=== PATIENT | male | born 1940 | race Caucasian/White ===

== ENCOUNTER → 2016-11-02 | Outpatient (REF) | payer MEDICARE ==
[~2016-11-02] MED LIST: ADV250INH INH; ASPI81TA85 PO; BENETAB2 PO; CIPR500T89 PO; FLAG500T PO; LEVO175T PO; NAPR250T PO; OMEP40CA2 PO; SIMV40TA2 PO; VITA2000 PO
[2016-11-02 12:01] LABS: BASO % 0.4 % (0.0-1.0); EOS # 0.1 K/mm3 (0.0-0.50); EOS % 2.7 % (0.0-3.0); LARGE UNSTAINED CELL # 0.1 K/mm3 (0.0-0.4); LARGE UNSTAINED CELL % 2.7 % (0.0-4.0); LYMPH # 1.5 K/mm3 (1.5-4.5); LYMPH % 26.7 % (24.0-44.0); MEAN CORPUSCULAR HGB CONC 33.4 g/dl (32.0-36.5); MEAN CORPUSCULAR VOLUME 89.8 fl (80.0-96.0); MONO # 0.4 K/mm3 (0.0-0.8); MONO % 7.6 % (0.0-5.0); NEUTROPHILS # 3.1 K/mm3 (1.8-7.7); PLATELET COUNT, AUTOMATED 168 k/mm3 (150-450); RED CELL DISTRIBUTION WIDTH 13.6 % (11.5-14.5); WHITE BLOOD COUNT 5.2 K/mm3 (4.0-10.0)
[2016-11-02 12:31] LABS: VITAMIN B12 LEVEL > 2000 PG/ML
[2016-11-02 13:10] LABS: ALBUMIN 3.7 GM/DL (3.2-5.2); ALBUMIN/GLOBULIN RATIO 1.09 (1.00-1.93); ALKALINE PHOSPHATASE 103 U/L (45-117); ALT/SGPT 9 U/L (12-78); ANION GAP 8 MEQ/L (8-16); AST/SGOT 17 U/L (15-37); BILIRUBIN,TOTAL 0.5 MG/DL (0.2-1.0); BLOOD UREA NITROGEN 19 MG/DL (7-18); CALCIUM LEVEL 9.2 MG/DL (8.8-10.2); CARBON DIOXIDE LEVEL 26 MEQ/L (21-32); CHLORIDE LEVEL 105 MEQ/L (98-107); CREATININE FOR GFR 0.84 MG/DL (0.70-1.30); GLOMERULAR FILTRATION RATE > 60.0 (>42); GLUCOSE, FASTING 94 MG/DL (83-110); POTASSIUM SERUM 4.3 MEQ/L (3.5-5.1); SODIUM LEVEL 139 MEQ/L (136-145); TOTAL PROTEIN 7.1 GM/DL (6.4-8.2)
== END ==
LOC: M LABDRAW1 11:45
PROVIDERS: ATTEND Psychiatry & Neurology Neurology
DX: G20 Parkinson's disease (principal); E55.9 Vitamin D deficiency, unspecified

== ENCOUNTER 2017-01-27 11:13 | Inpatient (IN) | payer MEDICARE ==
[~2017-01-27] VITALS: Ht 177.8 cm; Wt 89.0 kg
[2017-01-27] MEDS ORDERED: OXYB5TAB PO ×2 (11:45→14:41)
[2017-01-27] MEDS ORDERED: CARBIDOPA-LEVO PO (11:45)
[2017-01-27] MEDS ORDERED: CARB1TAB9 PO (11:45)
[2017-01-27] MEDS ORDERED: ASPI81CH PO (11:46)
[2017-01-27] MEDS: NS 1,000 ML IV SCH ×2 (11:53→21:17)
--- NOTE | 2017-01-27 12:30 | REP ---
Clinical: Altered mental status. Comparison: 07/06/2016. Findings: Mediastinum and cardiac silhouette along with bilateral lung blake demonstrate relatively stable pleuroparenchymal changes. Subtle superimposed atelectasis cannot be excluded. Impression: Pleuroparenchymal changes similar to prior examination. Trace basilar atelectasis cannot be excluded. If the patient remains symptomatic consider chest CT for further investigation. Signed by Dustin Styles MD 01/27/2017 12:22 P
[2017-01-27 12:42] LABS: BASO % 0.2 % (0.0-1.0); EOS # 0.2 K/mm3 (0.0-0.50); EOS % 1.4 % (0.0-3.0); LARGE UNSTAINED CELL # 0.2 K/mm3 (0.0-0.4); LARGE UNSTAINED CELL % 1.4 % (0.0-4.0); LYMPH # 1.2 K/mm3 (1.5-4.5); LYMPH % 7.4 % (24.0-44.0); MEAN CORPUSCULAR HGB CONC 32.8 g/dl (32.0-36.5); MEAN CORPUSCULAR VOLUME 91.5 fl (80.0-96.0); MONO # 0.6 K/mm3 (0.0-0.8); MONO % 4.6 % (0.0-5.0); NEUTROPHILS # 11.3 K/mm3 (1.8-7.7); PLATELET COUNT, AUTOMATED 219 k/mm3 (150-450); RED CELL DISTRIBUTION WIDTH 13.6 % (11.5-14.5); WHITE BLOOD COUNT 13.3 K/mm3 (4.0-10.0)
[2017-01-27 13:04] LABS: OSMOLALITY SERUM 293 MOSM/KG (280-301)
[2017-01-27 13:10] LABS: ALBUMIN 2.6 GM/DL (3.2-5.2); ALBUMIN/GLOBULIN RATIO 0.62 (1.00-1.93); ALKALINE PHOSPHATASE 113 U/L (45-117); ALT/SGPT 11 U/L (12-78); ANION GAP 9 MEQ/L (8-16); AST/SGOT 53 U/L (15-37); BILIRUBIN,DIRECT 0.5 MG/DL (0.0-0.2); BILIRUBIN,TOTAL 1.2 MG/DL (0.2-1.0); BLOOD UREA NITROGEN 20 MG/DL (7-18); CALCIUM LEVEL 8.6 MG/DL (8.8-10.2); CARBON DIOXIDE LEVEL 28 MEQ/L (21-32); CHLORIDE LEVEL 105 MEQ/L (98-107); CREATININE FOR GFR 0.73 MG/DL (0.70-1.30); GLOMERULAR FILTRATION RATE > 60.0 (>42); GLUCOSE, FASTING 110 MG/DL (83-110); POTASSIUM SERUM 3.6 MEQ/L (3.5-5.1); SODIUM LEVEL 142 MEQ/L (136-145); TOTAL PROTEIN 6.8 GM/DL (6.4-8.2)
--- NOTE | 2017-01-27 13:40 | REP ---
Clinical: Cough and weakness. Comparison: 04/05/2015. Findings: Chronic areas of scarring and consolidations primarily involving the paramediastinal right upper lobe are similar to prior examination. New areas of consolidation with air bronchograms in the paramediastinal right middle lobe and right lower lobe are appreciated along with bilateral patchy alveolar infiltrates predominantly involving the lower lung zones as well as new area of consolidation with air bronchograms involving the basilar right upper lobe. Reactive adenopathy within the mediastinum is suggested along with small right pleural effusion. Atherosclerotic changes to the thoracic aorta and coronary arteries remains stable. No cardiomegaly or pericardial effusion identified. Surrounding musculoskeletal structures are intact. Impression: Findings likely represent multifocal pneumonia, and follow up to resolution is recommended to exclude further pathology including neoplasm. Signed by Dustin Styles MD 01/27/2017 01:32 P
--- NOTE | 2017-01-27 14:02 | REP ---
CT HEAD WITHOUT CONTRAST: HISTORY: Altered mental status. Areas of decreased attenuation are present in the periventricular and subcortical white matter. This represents small vessel ischemic disease. There is no intraparenchymal hemorrhage, mass or midline shift. The ventricular system and cortical sulci as well as subarachnoid space in the posterior fossa are dilated consistent with moderate volume loss. There is no extracerebral collection. The visualized sinuses are clear. IMPRESSION: 1. Small vessel ischemic disease. 2. Moderate volume loss. Signed by Reese Luke MD 01/27/2017 02:09 P
[2017-01-27] MEDS ORDERED: cefTRIAXone SOD 1 GM in D5W MINI-BAG PLUS 50 ML IV ONE (14:15)
[2017-01-27] MEDS ORDERED: AZITHROMYCIN INJ 500 MG, VIAL MATE ADAPTER 1 EACH in D5W 250 ML IV ONE (14:15)
[2017-01-27] MEDS ORDERED: SINEMET 25-100 MG TAB PO ONE (14:30)
[2017-01-27] MEDS ORDERED: SIMV80TA PO (14:41)
[2017-01-27] MEDS ORDERED: OMEP40CA2 PO (14:41)
[2017-01-27] MEDS ORDERED: ASPI81TA24 PO (14:41)
[2017-01-27] MEDS ORDERED: LEVO150T42 PO (14:41)
[2017-01-27] MEDS ORDERED: ADVA115A INH (14:41)
[2017-01-27] MEDS ORDERED: CARB25TA PO (14:41)
[2017-01-27] MEDS ORDERED: ALBU17IN INH (14:44)
[2017-01-27] MEDS ORDERED: PYRI100T2 PO (14:44)
[2017-01-27] MEDS ORDERED: VITA100T2 PO (14:44)
[2017-01-27] MEDS ORDERED: CARB1TAB97 PO (14:44)
[2017-01-27] MEDS ORDERED: VITA500064 PO (14:44)
[2017-01-27] MEDS ORDERED: SERT25TA PO (14:44)
[2017-01-27] MEDS ORDERED: TRAM50TA2 PO (14:44)
[2017-01-27] MEDS ORDERED: ONDANSETRON 4MG/2ML VIAL (J2405) IV PRN (16:30)
[2017-01-27] MEDS ORDERED: BISACODYL 5 MG TAB PO PRN (16:30)
[2017-01-27] MEDS ORDERED: IPRATROPIUM 0.5MG/ALBUTEROL 2.5MG INH SOL UD 3ML (DUONEB)(J7620) NEB PRN (16:30)
--- NOTE | 2017-01-27 17:47 | REP ---
LIMITED ABDOMEN ULTRASOUND: HISTORY: Transaminitis. The gallbladder is contracted. The gallbladder wall is thickened measuring 3.3 mm. The common bile duct measures 5.4 mm. The liver is normal in echogenicity. The pancreas is not seen due to overlying bowel gas. The right kidney is normal in echogenicity. The right kidney measures 5.6 cm in transverse x 5.3 cm in AP x 12.2 cm in cephalocaudal dimensions. There is no hydronephrosis or mass. A small right pleural effusion is present. IMPRESSION: 1. Contracted gallbladder. 2. Small right pleural effusion. Signed by Reese Luke MD 01/27/2017 06:21 P
[2017-01-27] MEDS: ACETAMINOPHEN TAB 650MG DOSE (2X325MG) PO PRN (17:54)
--- NOTE | 2017-01-27 18:40 | HPE ---
DATE OF ADMISSION: 01/27/2017 CHIEF COMPLAINT: 76-year-old gentleman brought in by family member due to altered mentation and weakness. HISTORY OF PRESENT ILLNESS: This is a 76-year-old gentleman with a significant past medical history of Parkinson's, hyperlipidemia, hypothyroidism, gastroesophageal reflux disease (GERD), who presented to the emergency room complaining of weakness and altered mentation for the past 5 days. Family provides most of the history, as the patient has been weak and progressively not feeling well for the past 5 days, but his altered mentation started today and he therefore came to the emergency room for further evaluation. The patient also did have some history of cough, feeling like he has had some phlegm out, but no sputum production. No history of fever, diarrhea, nausea, vomiting, but did have some clamminess, as per patient's family members. The patient also has a history of having Parkinson's disease and squamous cell lung cancer history in the past that he follows up with Dr. Lee as an outpatient and Dr. Aaron. The patient currently is awake, alert and oriented times three. Cooperates with physical examination without difficulty. Does not complain of any shortness of breath, pain or discomfort at this time. The patient's family also mentioned that the patient's only complications of Parkinson's is difficulty walking and beginning stages of memory loss. The patient was evaluated in the emergency room with a chest x-ray and CT of the chest, which showed pneumonia. Therefore, the patient is being admitted for further evaluation and treatment. The patient's family mentions that the patient's mentation has improved significantly since the emergency room. At this time, the patient is resting comfortably without any complaints. In the emergency room, the patient was started on IV fluids and antibiotics. It should be noted that the patient also had a cough for 2 to 3 days but no fever. Initially, family contributed his altered mentation due to not taking his medications right away, but again when his symptoms did not improve within the past five days and his altered mentation occurred today, he was brought to the emergency room for further evaluation. REVIEW OF SYSTEMS: Ten-point review of systems is negative other than those described in history of present illness. PAST MEDICAL HISTORY: Significant for: 1. Parkinson's. 2. Squamous cell lung cancer, followed by Dr. Lee. 3. Hyperlipidemia. 4. Hypothyroidism. 5. Gastroesophageal reflux disease (GERD). ALLERGIES: The patient has no known drug allergies. MEDICATIONS: From home are as follows: - albuterol as needed four times a day - aspirin 81 mg one tablet once a day - carbidopa levodopa 25/100 mg two tablets by mouth four times a day - carbidopa levodopa extended release 50/200 mg one tablet by mouth at night - cyanocobalamin 5000 mcg by mouth daily - levothyroxine 150 mcg by mouth daily - omeprazole 40 mg by mouth twice a day - oxybutynin 5 mg by mouth twice a day - pyridoxine 200 mg by mouth daily - Advair 115/21 mcg two puffs twice a day - sertraline 25 mg by mouth at night - simvastatin 40 mg by mouth at night - thiamine B1 100 mg by mouth daily - tramadol 50 mg by mouth at night as needed for pain SOCIAL HISTORY: The patient denies smoking, drinking or drug abuse. FAMILY HISTORY: Noncontributory at this time due to his age. PHYSICAL EXAMINATION: VITAL SIGNS: Last heart rate was 100, blood pressure is 156/81, saturating 91 to 92% on room air. Respiratory on my examination was 14. I did ask the emergency room staff to provide temperature and repeat vitals, awaiting repeat vitals at this time. The repeat vitals show his temperature is 99.9, heart rate 102, respiratory rate of 20, blood pressure is 144/80, saturating 90%. On my examination, the patient did not have any shortness of breath or difficulty breathing. We will place him on oxygen therapy as needed, along with respiratory treatment. HEENT: Normocephalic, atraumatic. Eyes, nose and throat normal. Pupils equal, round, and reactive to light and accommodation. Mucosa is moist. NECK: Supple with no tracheal deviation. CARDIAC: S1, S2. Regular rate and rhythm. Pulses present. LUNGS: Equal entry. Did not hear any significant wheezes but fine crackles at the base bilaterally. No rales noted. ABDOMEN: Soft, nontender. Bowel sounds present. EXTREMITIES: Lower extremities with significant pitting edema. Skin is intact. Warm to touch, afebrile. NEUROLOGIC: The patient is currently awake, alert and oriented times three. Cranial nerves grossly intact. Motor and sensory is intact. Normal mood and affect for current situation. Family at the bedside. As per family members, the patient's mentation has improved significantly since being in the emergency room. DIAGNOSTIC STUDIES: The patient has a chest x-ray which showed pleural parenchymal changes, similar to the prior examination. Trace bilateral atelectasis cannot be excluded. If the patient remains symptomatic, consider a CT of the chest for further evaluation. The patient did end up getting a CT of the chest, which showed, as per radiology, findings likely represent multifocal pneumonia and followup to resolution is recommended to exclude further pathology, including neoplasm. The patient also had a CT of the head, as per radiology, shows small vessel ischemic disease, moderate volume loss. Diagnostic laboratory: The patient had WBC of 13.3, hemoglobin and hematocrit of 13.6 and 41.6, platelet count is 219. Complete metabolic profile is within normal limits except for a BUN of 20, calcium was 8.6, total bilirubin was 1.2, direct bilirubin is 0.5, AST and ALT 63 and 11, respectively. Albumin is 2.6, otherwise complete metabolic profile is normal. TSH is 0.259. The patient has hypothyroidism and takes medication for this as well. Ammonia level is normal at 23. Lactate is 1.5. Cardiac enzymes normal. Toxicology, salicylate is less than 1.7, acetaminophen less than 2, alcohol was less than 0.003. Blood cultures are pending at this time. ASSESSMENT AND PLAN: This is a 76-year-old gentleman with a significant past medical history of Parkinson's disease with residual of difficulty walking and beginning stages of memory loss. History of squamous cell lung cancer, hyperlipidemia, hypothyroidism, gastroesophageal reflux disease (GERD), who was brought in by family member due to weakness for the past 5 days and altered mentation today. 1. Suspect sepsis pending due to pneumonia. CT of the chest finding pneumonia. Mentation has improved with IV fluids and antibiotics. We will resume azithromycin and Rocephin. Followup on culture. Due to history of Parkinson's and change in mentation, we will also request speech therapy for possible aspiration, but at this time the patient does not seem to have any acute findings of aspiration on my examination, but we will continue to monitor. We will utilizing oxygen. He has respiratory treatments as needed. Resume home regimen with long-acting steroid inhaler as well. The patient is to followup with repeat chest x-ray and possible outpatient followup with Dr. Lee regarding the complete resolution of pneumonia and to rule out for malignancy as the radiologist recommended. 2. Transaminitis, most likely secondary to problem #1. Treat problem #1. We will obtain a hepatitis panel and in addition liver ultrasound for further evaluation. The patient does not have any acute abdominal discomfort on my examination. Continue to monitor clinically. 3. Low TSH. The patient is on Synthroid. We will decrease the levothyroxine level to 125 at this time. 4. Parkinson's. Resume carbidopa and levodopa. 5. Hyperlipidemia. Resume aspirin and statin. 6. Gastroesophageal reflux disease (GERD). Resume omeprazole. 7. Deep vein thrombosis (DVT) prophylaxis. The patient requested to be FULL CODE. We will honor his wishes. LAMAR
[2017-01-27 20:10] LABS: METHADONE URINE NEGATIVE (NEGATIVE)
[2017-01-27] MEDS ORDERED: SIMVASTATIN 40 MG TAB PO SCH (21:00)
[2017-01-27] MEDS: SERTRALINE HCL 25 MG TABLET PO SCH (21:14)
[2017-01-27] MEDS: oxyBUTYnin *DITROPAN XL* 5 MG TABCR PO SCH (21:14)
[2017-01-27] MEDS: SINEMET**CR** 25/100 TABCR PO SCH (21:15)
[2017-01-27] MEDS: OMEPRAZOLE 20 MG CAP PO SCH (21:15)
[2017-01-27] MEDS: HEPARIN SOD (PORCINE) 5000 UNITS/ML VIAL SC SCH (21:16)
[2017-01-27] MEDS: traMADol 50 MG TAB PO PRN (21:16)
[2017-01-27 22:00] VITALS: BP 144/90
[2017-01-28] MEDS: ADVAIR HFA 115/21MCG INHALER INH SCH ×3 (00:10→21:00)
[2017-01-28] MEDS: IPRATROPIUM 0.5MG/ALBUTEROL 2.5MG INH SOL UD 3ML (DUONEB)(J7620) NEB SCH ×4 (01:11→21:55)
[2017-01-28] MEDS: LEVOTHYROXINE 125MCG TABLET (0.125MG) PO SCH (05:42)
[2017-01-28] MEDS: HEPARIN SOD (PORCINE) 5000 UNITS/ML VIAL SC SCH ×3 (05:42→20:50)
[2017-01-28 06:00] VITALS: BP 137/85
--- NOTE | 2017-01-28 07:32 | ECGEPIP ---
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
[2017-01-28 07:47] LABS: MEAN CORPUSCULAR HEMOGLOBIN 30.7 pg (27.0-33.0); MEAN CORPUSCULAR VOLUME 90.3 fl (80.0-96.0); RED CELL DISTRIBUTION WIDTH 13.8 % (11.5-14.5); WHITE BLOOD COUNT 10.4 K/mm3 (4.0-10.0)
[2017-01-28 08:25] LABS: ALBUMIN 2.1 GM/DL (3.2-5.2); ALBUMIN/GLOBULIN RATIO 0.47 (1.00-1.93); ALKALINE PHOSPHATASE 94 U/L (45-117); ALT/SGPT 12 U/L (12-78); ANION GAP 7 MEQ/L (8-16); AST/SGOT 26 U/L (15-37); BILIRUBIN,TOTAL 0.7 MG/DL (0.2-1.0); BLOOD UREA NITROGEN 17 MG/DL (7-18); CALCIUM LEVEL 8.4 MG/DL (8.8-10.2); CARBON DIOXIDE LEVEL 28 MEQ/L (21-32); CHLORIDE LEVEL 106 MEQ/L (98-107); CREATININE FOR GFR 0.55 MG/DL (0.70-1.30); GLOMERULAR FILTRATION RATE > 60.0 (>42); GLUCOSE, FASTING 86 MG/DL (83-110); POTASSIUM SERUM 3.1 MEQ/L (3.5-5.1); SODIUM LEVEL 141 MEQ/L (136-145); TOTAL PROTEIN 6.6 GM/DL (6.4-8.2)
[2017-01-28] MEDS ORDERED: LEVOTHYROXINE 150MCG TABLET (0.15MG) PO SCH (09:00)
[2017-01-28] MEDS ORDERED: POTASSIUM CHLORIDE 10 MEQ SR TABLET PO ONE (09:00)
[2017-01-28] MEDS: THIAMINE 100 MG TAB PO SCH (09:42)
[2017-01-28] MEDS: oxyBUTYnin *DITROPAN XL* 5 MG TABCR PO SCH ×2 (09:42→20:06)
[2017-01-28] MEDS: OMEPRAZOLE 20 MG CAP PO SCH ×2 (09:42→20:06)
[2017-01-28] MEDS: ASPIRIN 81 MG ENTERIC TAB PO SCH (09:42)
[2017-01-28] MEDS: PYRIDOXINE 50 MG TAB PO SCH (09:44)
[2017-01-28] MEDS: SINEMET 25-100 MG TAB PO SCH ×4 (09:48→18:28)
[2017-01-28] MEDS: ACETAMINOPHEN TAB 650MG DOSE (2X325MG) PO PRN ×2 (11:01→15:19)
--- NOTE | 2017-01-28 12:52 | IPN ---
DATE OF VISIT: 01/28/2017 SUBJECTIVE: Mr. Price is a 76-year-old male who was seen and examined at the bedside. The patient denies chest pain, orthopnea or paroxysmal nocturnal dyspnea (PND). Patient also denies nausea, vomiting, diarrhea or constipation. Today during the visit the patient was eating breakfast, however, patient earlier was seen by speech therapy who cleared him for having p.o. The patient expressed that he did not have any choking or have any problems with chewing or swallowing food. The patient denies overnight issues. The patient expressed that today he feels better compared to yesterday. The patient denies chest pain, orthopnea, or paroxysmal nocturnal dyspnea (PND). The patient also denies nausea or vomiting, diarrhea or constipation. PHYSICAL EXAMINATION: VITAL SIGNS: Temperature 97.8, pulse 82, respiratory rate 18, blood pressure 137/85, pulse oximetry 94% on room air. GENERAL APPEARANCE: The patient was sitting in chair in no acute distress. Patient was awake, alert and oriented to time, place and person. HEENT: Normocephalic, atraumatic. Pupils are equally reactive to light. Oral mucosa is moist. NECK: Soft, supple. No lymphadenopathy, no thyromegaly, no jugular venous distention (JVD). HEART: Regular rate and rhythm. Normal S1 and S2. LUNGS: The patient has fine wheezing bilaterally. ABDOMEN: Soft, nontender. Positive bowel sounds in all quadrants. EXTREMITIES: Patient has mild lower extremity pitting edema. +2 pulses in both lower extremities. NEURO: Cranial nerves II through XII is intact. No focal deficiencies. LABORATORY DATA: White blood cells 10.4, red blood cells 4.11, hemoglobin 12.6, hematocrit 37.1, MCV 90.3, MCH 30.7, MCHC 34, RDW 13.8, platelet count 196, sodium 141, potassium 3.1, chloride 106, carbon dioxide 28, anion gap 7. BUN 17, creatinine 0.55, glomerular filtration rate (GFR) more than 60, fasting glucose 86, calcium 8.4, total bilirubin 0.7, AST 26, ALT 12, alkaline phosphatase 96, total protein 6.6, albumin 2.1. ASSESSMENT/PLAN: 1. Pneumonia. Imaging indicated the possibility of pneumonia. The patient was started on azithromycin and Rocephin. Today patient's temperature is in normal range. Also, white blood cells have decreased today to 10.4 compared to yesterday which was 13.3. Blood culture is pending. Patient is on room air. Previously patient has been diagnosed with squamous cell carcinoma and following with Dr. Lee, however, patient is to followup with repeat chest x-ray and possible outpatient followup with Dr. Lee regarding complete resolution of the pneumonia and to rule out a malignancy as the radiologist recommended. Patient is also on breathing treatments. 2. Transaminitis. It has resolved. This was possibly secondary to sepsis possibly caused by pneumonia. Patient was on IV fluid, however, I have stopped IV fluids due to patient tolerating p.o. We will continue monitoring liver functions. 3. Low TSH. Patient is on Synthroid, however, the level has increased to 125. We will continue to monitoring the patient's TSH level. 4. Parkinson's. We will continue the patient on current dosage of carbidopa and levodopa. Speech therapy has seen the patient today and the patient was started on a regular diet. Also they have provided the patient education from the Parkinson's [facility] about speech and swallow with Parkinson's. 5. Hyperlipidemia. Patient is on statin. 6. Gastroesophageal reflux disease (GERD). Patient is on omeprazole. 7. Deep vein thrombosis (DVT) prophylaxis. Patient is on heparin every 8 hours subcutaneously. 8. Abnormal urinalysis. Patient's UA findings indicative of urinary tract infection, however, urine culture is pending. Patient is asymptomatic, however patient is on IV antibiotics for pneumonia. At this time, we are waiting for the results for urine culture. My preceptor for this patient encounter was Dr. Bob Linares. The preceptor was physically present in the building during the encounter and was fully available. As needed, all aspects of the patient interview, examination, medical decision making process, and medical care plan development were reviewed and approved by the preceptor. The preceptor is aware and concurs with the plan as stated in the body of this note and will attest to such by his/her cosignature. I, Bob Linares, have both independently examined this patient as well as reviewed the documentation. I have discussed in detail with the resident the findings and plan of treatment as documented in the residents documentation. I will continue to follow the patient and offer further guidance to the patients care as necessary. LAMAR
[2017-01-28] MEDS: AZITHROMYCIN INJ 500 MG, VIAL MATE ADAPTER 1 EACH in D5W 250 ML IV SCH (15:19)
[2017-01-28] MEDS: cefTRIAXone SOD 1 GM in D5W MINI-BAG PLUS 50 ML IV SCH (16:55)
[2017-01-28] MEDS: METOPROLOL TART 25 MG TABLET PO SCH (17:30)
[2017-01-28] MEDS ORDERED: METOPROLOL TART 25 MG TABLET As Ordered ONE (17:39)
[2017-01-28] MEDS ORDERED: ASPIRIN 325 MG TAB PO ONE (18:00)
--- NOTE | 2017-01-28 18:16 | ECGEPIP ---
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
[2017-01-28 18:23] LABS: ANION GAP 8 MEQ/L (8-16); BLOOD UREA NITROGEN 15 MG/DL (7-18); CALCIUM LEVEL 8.2 MG/DL (8.8-10.2); CARBON DIOXIDE LEVEL 26 MEQ/L (21-32); CHLORIDE LEVEL 108 MEQ/L (98-107); CREATININE FOR GFR 0.61 MG/DL (0.70-1.30); GLOMERULAR FILTRATION RATE > 60.0 (>42); GLUCOSE, FASTING 124 MG/DL (83-110); MAGNESIUM LEVEL 1.7 MG/DL (1.8-2.4); POTASSIUM SERUM 3.5 MEQ/L (3.5-5.1); SODIUM LEVEL 142 MEQ/L (136-145)
[2017-01-28] MEDS ORDERED: MAG SULF 1GM/100ML (MAG RUN) 1 GM in APPROPRIATE DILUENT 1 EA IV ONE (19:00)
[2017-01-28] MEDS: SIMVASTATIN 40 MG TAB PO SCH (20:07)
[2017-01-28] MEDS: SERTRALINE HCL 25 MG TABLET PO SCH (20:07)
[2017-01-28] MEDS: traMADol 50 MG TAB PO PRN (20:25)
[2017-01-28 20:42] VITALS: BP 110/73
[2017-01-28] MEDS ORDERED: SLF 3 ML SYR IV PRN (20:45)
[2017-01-28] MEDS: SINEMET**CR** 25/100 TABCR PO SCH (20:49)
[2017-01-28] MEDS: SLF 3 ML SYR IV SCH (20:50)
[2017-01-28 23:59] VITALS: BP 141/70
[2017-01-29] MEDS: IPRATROPIUM 0.5MG/ALBUTEROL 2.5MG INH SOL UD 3ML (DUONEB)(J7620) NEB SCH ×5 (01:35→20:00)
[2017-01-29 04:00] VITALS: BP 132/75
[2017-01-29] MEDS: HEPARIN SOD (PORCINE) 5000 UNITS/ML VIAL SC SCH ×3 (04:57→21:49)
[2017-01-29] MEDS: SLF 3 ML SYR IV SCH ×3 (04:57→21:50)
[2017-01-29] MEDS: LEVOTHYROXINE 125MCG TABLET (0.125MG) PO SCH (04:57)
--- NOTE | 2017-01-29 06:11 | ECGEPIP ---
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
[2017-01-29 06:25] LABS: MEAN CORPUSCULAR HEMOGLOBIN 30.4 pg (27.0-33.0); MEAN CORPUSCULAR HGB CONC 33.6 g/dl (32.0-36.5); MEAN CORPUSCULAR VOLUME 90.5 fl (80.0-96.0); WHITE BLOOD COUNT 9.4 K/mm3 (4.0-10.0)
[2017-01-29 06:37] LABS: ALBUMIN 2.1 GM/DL (3.2-5.2); ALBUMIN/GLOBULIN RATIO 0.53 (1.00-1.93); ALKALINE PHOSPHATASE 91 U/L (45-117); ALT/SGPT < 6 U/L (12-78); ANION GAP 8 MEQ/L (8-16); AST/SGOT 40 U/L (15-37); BILIRUBIN,TOTAL 0.4 MG/DL (0.2-1.0); BLOOD UREA NITROGEN 14 MG/DL (7-18); CALCIUM LEVEL 8.2 MG/DL (8.8-10.2); CARBON DIOXIDE LEVEL 24 MEQ/L (21-32); CHLORIDE LEVEL 107 MEQ/L (98-107); CREATININE FOR GFR 0.54 MG/DL (0.70-1.30); GLOMERULAR FILTRATION RATE > 60.0 (>42); GLUCOSE, FASTING 87 MG/DL (83-110); POTASSIUM SERUM 3.7 MEQ/L (3.5-5.1); SODIUM LEVEL 139 MEQ/L (136-145); TOTAL PROTEIN 6.1 GM/DL (6.4-8.2)
[2017-01-29] MEDS: ADVAIR HFA 115/21MCG INHALER INH SCH ×2 (07:40→20:29)
[2017-01-29 08:00] VITALS: BP 148/81
[2017-01-29] MEDS: THIAMINE 100 MG TAB PO SCH (08:24)
[2017-01-29] MEDS: SINEMET 25-100 MG TAB PO SCH ×4 (08:24→17:20)
[2017-01-29] MEDS: oxyBUTYnin *DITROPAN XL* 5 MG TABCR PO SCH ×2 (08:24→21:49)
[2017-01-29] MEDS: METOPROLOL TART 25 MG TABLET PO SCH ×2 (08:24→21:49)
[2017-01-29] MEDS: OMEPRAZOLE 20 MG CAP PO SCH ×2 (08:24→21:49)
[2017-01-29] MEDS: ASPIRIN 81 MG ENTERIC TAB PO SCH (08:24)
[2017-01-29] MEDS: PYRIDOXINE 50 MG TAB PO SCH (08:25)
[2017-01-29 08:43] LABS: MAGNESIUM LEVEL 2.1 MG/DL (1.8-2.4)
[2017-01-29] MEDS ORDERED: ASPIRIN 325 MG TAB GT SCH (09:00)
[2017-01-29] MEDS ORDERED: KETOROLAC TROMETHAMINE 10 MG TAB PO PRN (09:15)
[2017-01-29 12:00] VITALS: BP 140/86
[2017-01-29] MEDS ORDERED: CEPACOL LOZENGE PO PRN (12:45)
[2017-01-29] MEDS: AZITHROMYCIN INJ 500 MG, VIAL MATE ADAPTER 1 EACH in D5W 250 ML IV SCH (15:30)
[2017-01-29 16:00] VITALS: BP 128/76
[2017-01-29] MEDS: cefTRIAXone SOD 1 GM in D5W MINI-BAG PLUS 50 ML IV SCH (17:21)
--- NOTE | 2017-01-29 17:57 | IPN ---
DATE: 01/29/2017 SUBJECTIVE: Mr. Price is a 76-year-old male who was seen and examined at the bedside. Yesterday evening the patient started having tachycardia. EKG indicated supraventricular tachycardia with premature ventricular contraction (PVC) as well as left anterior fascicular block. The patient was given one dose of metoprolol tartrate 25 mg, also we have ordered cardiac marker which were negative. We rechecked the EKG which shows sinus rhythm, however, we sent to the patient to PCU for observation. The patient was asymptomatic overnight. The patient denied chest pain, orthopnea or paroxysmal nocturnal dyspnea (PND). The patient also denies palpitations, racing or skipping heartbeat. At this point, the patient is on metoprolol tartrate 25 mg by mouth twice a day. OBJECTIVE: VITAL SIGNS: Temperature 98.1, pulse 82, respiratory rate 18, blood pressure 148/81, pulse oximetry 93 on room air. Total intake from yesterday 3200 mL. Total output 1150. GENERAL APPEARANCE: The patient was lying in bed, in no acute distress. The patient was awake, alert and oriented to time, place and person. HEENT: Normocephalic, atraumatic. Pupils reactive to light. Oral mucosa is moist. NECK: Soft, supple. No lymphadenopathy, no jugular venous distention (JVD). HEART: Regular rate and rhythm. Normal S1, S2. ABDOMEN: Soft, nontender. Positive bowel sounds in all quadrants. LUNGS: The patient has wheezing bilaterally. However, no crackles or rhonchi were appreciated. EXTREMITIES: No lower extremity edema. Positive pulses in both lower extremities. LABORATORY DATA: White blood cells 9.4, red blood cells 3.83, hemoglobin 11.7, hematocrit 34.7, MCV 90.4, MCH 30.4, MCHC 33.6. RDW 14, platelet count 223. Sodium 139. Potassium 3.7, chloride 107, carbon dioxide 24. Anion gap 8. BUN 18, creatinine 0.54. Glomerular filtration rate 160. Fasting glucose 87, calcium 8.2 , magnesium 2.1. Total bilirubin 0.4. AST 40, ALT less than 6. Alkaline phosphatase 91. Total creatinine 41, CK-MB 1.4, CK-MB index 3.41. Troponin I less than 0.02. Total protein 6.1. TSH 0.554. EKG which was done on 01/28/2017 at 1701 hours indicated supraventricular tachycardia with PVCs. Left anterior fascicular block. EKG which was done on 01/28/2017 at 1820 hours indicated sinus rhythm with a left anterior fascicular block. ASSESSMENT AND PLAN: 1. Supraventricular tachycardia. This could be secondary to medication (antipruritic and breathing treatment). The patient was started on metoprolol and received one dose of metoprolol 25 mg. Also we have checked the cardiac marker which was negative. The patient received one dose of aspirin 325. The patient is asymptomatic. The patient was transferred to PCU. No new events overnight. Also we have ordered TSH level which was in normal range. At this point we will continue monitoring the patient at the PCU for 24 hours. 2. Transaminitis. At the time of admission, the patient has elevated liver enzymes. This was possibly secondary to sepsis caused by pneumonia. However, today the patient has elevated AST. This could be secondary to stress versus medication. We will continue monitoring liver function. 3. Hypothyroidism. The patient is on Synthroid. 4. Parkinson's. We will continue the patient on carbidpa-levodopa. The patient is also following with physical therapy. 5. Hyperlipidemia. The patient is on statin. 6. Gastroesophageal reflux disease (GERD). Will continue patient on omeprazole. 7. Deep venous thrombosis (DVT) prophylaxis. The patient is on heparin. 8. Abnormal UA. Urine culture was negative, however, the patient is on IV antibiotics due to pneumonia. 9. Pneumonia. We will continue patient on current dosage of azithromycin and Rocephin. 10. History of squamous cell carcinoma. The patient previously has been diagnosed with squamous cell carcinoma and following with Dr. Lee. The patient needs to be followed up with Dr. Lee after being discharged due to recommendation from the radiologist after pneumonia resolved. Will continue the patient on current breathing treatment. Also we have started the patient on incentive spirometer due to patient having more wheezing today. My preceptor for this patient encounter was Dr. Bob Linares. The preceptor was physically present in the building during the encounter and was fully available. As needed, all aspects of the patient interview, examination, medical decision making process, and medical care plan development were reviewed and approved by the preceptor. The preceptor is aware and concurs with the plan as stated in the body of this note and will attest to such by his/her cosignature. I, Bob Linares, have both independently examined this patient as well as reviewed the documentation. I have discussed in detail with the resident the findings and plan of treatment as documented in the residents documentation. I will continue to follow the patient and offer further guidance to the patients care as necessary. LAMAR
[2017-01-29 20:00] VITALS: BP_SYST 147; BP_SYST 172; BP_DIAS 80; BP_DIAS 82
[2017-01-29] MEDS: SINEMET**CR** 25/100 TABCR PO SCH (21:48)
[2017-01-29] MEDS: SERTRALINE HCL 25 MG TABLET PO SCH (21:49)
[2017-01-29] MEDS: SIMVASTATIN 40 MG TAB PO SCH (21:49)
[2017-01-29] MEDS: BENZONATATE 100 MG CAP PO PRN (21:58)
[2017-01-29 23:59] VITALS: BP 132/69
[2017-01-30] MEDS: IPRATROPIUM 0.5MG/ALBUTEROL 2.5MG INH SOL UD 3ML (DUONEB)(J7620) NEB SCH ×4 (02:33→19:00)
[2017-01-30] MEDS ORDERED: METOPROLOL 5 MG/5 ML VIAL IV STA (02:48)
[2017-01-30] MEDS ORDERED: METOPROLOL 5 MG/5 ML VIAL IV PRN (03:00)
[2017-01-30] MEDS ORDERED: METOPROLOL TART 50 MG TAB PO ONE (03:00)
[2017-01-30 04:00] VITALS: BP 133/94
[2017-01-30 05:09] LABS: MEAN CORPUSCULAR HEMOGLOBIN 30.7 pg (27.0-33.0); MEAN CORPUSCULAR HGB CONC 34.1 g/dl (32.0-36.5); MEAN CORPUSCULAR VOLUME 90.1 fl (80.0-96.0); RED CELL DISTRIBUTION WIDTH 14.2 % (11.5-14.5); WHITE BLOOD COUNT 7.8 K/mm3 (4.0-10.0)
[2017-01-30 05:40] LABS: ALKALINE PHOSPHATASE 92 U/L (45-117); ALT/SGPT < 6 U/L (12-78); ANION GAP 7 MEQ/L (8-16); AST/SGOT 39 U/L (15-37); BILIRUBIN,TOTAL 0.4 MG/DL (0.2-1.0); BLOOD UREA NITROGEN 15 MG/DL (7-18); CALCIUM LEVEL 8.3 MG/DL (8.8-10.2); CARBON DIOXIDE LEVEL 24 MEQ/L (21-32); CHLORIDE LEVEL 107 MEQ/L (98-107); CREATININE FOR GFR 0.59 MG/DL (0.70-1.30); GLOMERULAR FILTRATION RATE > 60.0 (>42); GLUCOSE, FASTING 100 MG/DL (83-110); POTASSIUM SERUM 3.6 MEQ/L (3.5-5.1); SODIUM LEVEL 138 MEQ/L (136-145)
[2017-01-30] MEDS: HEPARIN SOD (PORCINE) 5000 UNITS/ML VIAL SC SCH ×3 (05:50→20:54)
[2017-01-30] MEDS: LEVOTHYROXINE 125MCG TABLET (0.125MG) PO SCH (05:50)
[2017-01-30] MEDS: SLF 3 ML SYR IV SCH ×3 (06:05→20:58)
[2017-01-30 08:00] VITALS: BP 138/96
[2017-01-30] MEDS: ADVAIR HFA 115/21MCG INHALER INH SCH ×3 (08:00→20:35)
[2017-01-30] MEDS: PYRIDOXINE 50 MG TAB PO SCH (09:35)
[2017-01-30] MEDS: oxyBUTYnin *DITROPAN XL* 5 MG TABCR PO SCH ×2 (09:35→20:54)
[2017-01-30] MEDS: OMEPRAZOLE 20 MG CAP PO SCH ×2 (09:35→20:54)
[2017-01-30] MEDS: THIAMINE 100 MG TAB PO SCH (09:35)
[2017-01-30] MEDS: SINEMET 25-100 MG TAB PO SCH ×4 (09:35→18:21)
[2017-01-30] MEDS: ASPIRIN 81 MG ENTERIC TAB PO SCH (09:36)
[2017-01-30] MEDS: ACETAMINOPHEN TAB 650MG DOSE (2X325MG) PO PRN (09:47)
[2017-01-30 12:00] VITALS: BP 154/78
[2017-01-30] MEDS: BENZONATATE 100 MG CAP PO PRN (13:24)
[2017-01-30 14:57] LABS: MAGNESIUM LEVEL 1.9 MG/DL (1.8-2.4)
--- NOTE | 2017-01-30 15:07 | REP ---
Clinical: Abdominal pain with history of possible abdominal aortic aneurysm. Technique: Real time bazan scale and color evaluation using curved array transducer. Findings: Ultrasound of the abdominal aorta is severely limited due to overlying bowel gas. The visualized portions of the mid to distal aorta measure maximal 2.8 cm diameter without obvious aneurysm and no evidence for periaortic inflammatory changes or fluid. Correlation is made with prior CT dated 2012 which confirms maximal diameter to the aorta at 2.8 cm diameter with mild atherosclerotic changes and no obvious aneurysm or dissection. Impression: Limited abdominal aorta ultrasound without definite evidence for aneurysm. Signed by Dustin Styles MD 01/30/2017 02:59 P
[2017-01-30] MEDS: AZITHROMYCIN INJ 500 MG, VIAL MATE ADAPTER 1 EACH in D5W 250 ML IV SCH (15:25)
[2017-01-30 16:00] VITALS: BP 122/74
[2017-01-30] MEDS: cefTRIAXone SOD 1 GM in D5W MINI-BAG PLUS 50 ML IV SCH (17:11)
[2017-01-30 20:00] VITALS: BP 137/81
[2017-01-30] MEDS: SIMVASTATIN 40 MG TAB PO SCH (20:54)
[2017-01-30] MEDS: SINEMET**CR** 25/100 TABCR PO SCH (20:54)
[2017-01-30] MEDS: SERTRALINE HCL 25 MG TABLET PO SCH (20:54)
[2017-01-30 23:59] VITALS: BP 127/72
--- NOTE | 2017-01-31 01:22 | IPN ---
DATE OF SERVICE: 01/30/2017 SUBJECTIVE: Mr. Price is a 76-year-old male who was seen and examined at the bedside. Last night patient had several episodes of tachycardia, although patient was on beta asmita (Lopressor 25 mg by mouth twice a day). Patient was given one dose of Lopressor 50 mg by mouth, as well as 5 mg intravenously (IV); however, patient continued to have tachycardia. Patient received one dose of Cardizem 10 mg IV, which patient became sinus. Patient was started on Cardizem 30 mg by mouth every 6 hours. Also, we have started patient on Lopressor 5 mg every 6 hours as needed IV for tachycardia. At this time, patient is sinus rhythm. Patient denies chest pain, orthopnea or paroxysmal nocturnal dyspnea (PND). Patient also denies papitations, racing or skipping heartbeat. Patient denies nausea or vomiting. OBJECTIVE: VITAL SIGNS: Temperature 98, pulse 78, respiratory rate 18, blood pressure 138/96, pulse oximetry 92% on room air. GENERAL APPEARANCE: Patient was lying in bed in no acute distress. Patient was awake, alert and oriented to time, place and person. HEENT: Normocephalic, atraumatic. Pupils are equally reactive to light. Oral mucosa is moist. NECK: Soft, supple. No lymphadenopathy, no thyromegaly, no jugular venous distention (JVD). HEART: Regular rate and rhythm. Normal S1 and S2. ABDOMEN: Soft, nontender. Positive bowel sounds in all quadrants. LUNGS: Clear breath sounds bilaterally. Good air movement. EXTREMITIES: No lower extremity edema. +2 pulses in both lower extremities. LABORATORY DATA: White blood cells 10.8, red blood cells 3.71, hemoglobin 11.4, hematocrit 33.4, MCV 90.1, MCH 30.7, MCHC 34.1, RDW 14.2, platelet count 244. Sodium 138, potassium 3.6, chloride 107, carbon dioxide 24, anion gap 7, BUN 15, creatinine 0.59, glomerular filtration rate more than 60, fasting glucose 100, calcium 8.3, total bilirubin 0.4, AST 39, ALT less than 6, alkaline phosphatase 92, total protein 6, albumin 2. ASSESSMENT AND PLAN: 1. Tachycardia. At this time, patient is in sinus rhythm and heart rate is controlled. We will continue patient on Cardizem 30 mg every 6 hours by mouth. Also, patient is on Lopressor 5 mg every 6 hours as needed intravenously (IV) for tachycardia. 2. Transaminitis. Today, patient's AST has decreased to 39 compared to yesterday which was 40. Patient had the abdominal ultrasound which indicated contracted gallbladder and small right pleural effusion. We will continue monitoring patient's liver function. 3. Hypothyroidism. Continue patient on Synthroid. 4. Parkinson's. We will continue the patient on carbidopa/levodopa. At this time, patient is stable. Patient also following with physical therapy. 5. Pneumonia. We will continue patient on azithromycin and Rocephin. 6. Hyperlipidemia. Patient is on statin. 7. Gastroesophageal reflux disease (GERD). Will continue patient on omeprazole. 8. Deep vein thrombosis (DVT) prophylaxis. Patient is on heparin. 9. Abnormal urinalysis (UA). Patient's blood culture indicated no growth. At this time, patient is on IV antibiotic for pneumonia. 10. History of squamous cell carcinoma. The patient has been diagnosed with squamous cell carcinoma, following with Dr. Lee. Patient needs to be followed by Dr. Lee after being discharged. 11. Depression/anxiety. Will continue patient on current dosage of Zoloft 25 mg by mouth nightly. My preceptor for this patient encounter was Dr. Bob Linares. The preceptor was physically present in the building during the encounter and was fully available as needed. All aspects of the patient interview, examination, medical decision making process, and medical care plan development were reviewed and approved by the preceptor. The preceptor is aware and concurs with the plan as stated in the body of this note and will attest to such by his/her co-signature. I, Bob Linares, have both independently examined this patient as well as reviewed the documentation. I have discussed in detail with the resident the findings and plan of treatment as documented in the residents documentation. I will continue to follow the patient and offer further guidance to the patients care as necessary. LAMAR
[2017-01-31] MEDS: IPRATROPIUM 0.5MG/ALBUTEROL 2.5MG INH SOL UD 3ML (DUONEB)(J7620) NEB SCH ×3 (02:11→13:47)
[2017-01-31 04:45] VITALS: BP 129/76
[2017-01-31 05:12] LABS: MEAN CORPUSCULAR HEMOGLOBIN 30.4 pg (27.0-33.0); MEAN CORPUSCULAR HGB CONC 33.7 g/dl (32.0-36.5); MEAN CORPUSCULAR VOLUME 90.3 fl (80.0-96.0); RED CELL DISTRIBUTION WIDTH 14.2 % (11.5-14.5); WHITE BLOOD COUNT 9.6 K/mm3 (4.0-10.0)
[2017-01-31 05:23] VITALS: BP 127/75
[2017-01-31] MEDS: HEPARIN SOD (PORCINE) 5000 UNITS/ML VIAL SC SCH (05:23)
[2017-01-31] MEDS: LEVOTHYROXINE 125MCG TABLET (0.125MG) PO SCH (05:23)
[2017-01-31] MEDS: SLF 3 ML SYR IV SCH (05:29)
[2017-01-31 05:35] LABS: ALBUMIN 2.1 GM/DL (3.2-5.2); ALBUMIN/GLOBULIN RATIO 0.47 (1.00-1.93); ALKALINE PHOSPHATASE 106 U/L (45-117); ALT/SGPT 20 U/L (12-78); ANION GAP 5 MEQ/L (8-16); AST/SGOT 50 U/L (15-37); BILIRUBIN,TOTAL 0.4 MG/DL (0.2-1.0); BLOOD UREA NITROGEN 10 MG/DL (7-18); CALCIUM LEVEL 8.5 MG/DL (8.8-10.2); CARBON DIOXIDE LEVEL 29 MEQ/L (21-32); CHLORIDE LEVEL 107 MEQ/L (98-107); CREATININE FOR GFR 0.64 MG/DL (0.70-1.30); GLOMERULAR FILTRATION RATE > 60.0 (>42); GLUCOSE, FASTING 96 MG/DL (83-110); POTASSIUM SERUM 3.7 MEQ/L (3.5-5.1); SODIUM LEVEL 141 MEQ/L (136-145); TOTAL PROTEIN 6.6 GM/DL (6.4-8.2)
[2017-01-31] MEDS ORDERED: PYRIDOXINE 50 MG TAB PO SCH (06:00)
[2017-01-31] MEDS: ADVAIR HFA 115/21MCG INHALER INH SCH (07:37)
[2017-01-31 08:00] VITALS: BP 152/96
[2017-01-31] MEDS: ASPIRIN 81 MG ENTERIC TAB PO SCH (08:56)
[2017-01-31] MEDS: SINEMET 25-100 MG TAB PO SCH ×2 (08:56→13:15)
[2017-01-31] MEDS: THIAMINE 100 MG TAB PO SCH (08:56)
[2017-01-31] MEDS: oxyBUTYnin *DITROPAN XL* 5 MG TABCR PO SCH (08:56)
[2017-01-31] MEDS: OMEPRAZOLE 20 MG CAP PO SCH (08:56)
[2017-01-31 12:00] VITALS: BP 149/99
[2017-01-31] MEDS ORDERED: SYNT125T PO (12:54)
[2017-01-31] MEDS ORDERED: CEFD1CAP8 PO (12:54)
[2017-01-31] MEDS ORDERED: AZIT500T2 PO (12:54)
[2017-01-31] MEDS ORDERED: CARD120C3 PO ×2 (12:54→15:54)
[2017-01-31] MEDS ORDERED: ATOR1TAB19 PO (15:54)
--- NOTE | 2017-01-31 16:47 | DSES ---
DATE OF ADMISSION: 01/27/2017 DATE OF DISCHARGE: 01/31/2017 PRIMARY CARE PHYSICIAN: Leroy Art. REFERRING PHYSICIAN: None. CONSULTING PHYSICIAN: None. CONDITION ON DISCHARGE: Stable. FINAL DIAGNOSES: 1. Community-acquired pneumonia. 2. Supraventricular tachycardia (SVT). PROCEDURES: None. HISTORY OF PRESENT ILLNESS: The patient is a 76-year-old male with a past medical history of Parkinson's, squamous cell lung cancer followed by Dr. Lee as an outpatient, dyslipidemia, hypothyroidism, and gastroesophageal reflux disease (GERD), who presented to the emergency room (ER) with complaints of altered mental status and weakness. The patient has been noted to have shortness of breath and cough. He has had a feeling of having phlegm in this throat but has not had any sputum production. He denies any fevers at home, but has been feeling weak. On imaging in the emergency room, the patient was found to have a pneumonia and was admitted for community-acquired pneumonia. HOSPITAL COURSE: 1. Community-acquired pneumonia: Initially his clinical symptoms were consistent with a pneumonia. Physical showed improvement of his breathing. Chest x-ray was consistent with pleural parenchymal changes similar to prior examination; trace basilar atelectasis could not be excluded. Chest CT was completed which revealed multifocal pneumonia. Recommended followup on resolution to exclude neoplasm. The patient was put on azithromycin and ceftriaxone during hospital course and upon discharge, he was transitioned to Cefdinir and azithromycin for completion of antibiotic course. 2. The patient has episodes of tachycardia. Electrocardiograms (EKG) were taken which revealed SVT. The patient was transferred from medical/surgical floor to the telemetry unit. The patient was initially put on metoprolol orally, and had remained controlled initially; however, had a second episode and was transitioned to Cardizem 30 mg by mouth every six hours, and upon discharge, he has been transitioned to an extended-release. The patient has been advised to followup with his laborer general as an outpatient. 3. Mild transaminitis. The patient has been put on a lower dose of statin, given that he is on Cardizem. 4. Parkinson's. 5. Dyslipidemia. Continue with reduced dose of statin. 6. Abnormal urinalysis (UA). At this point, the patient is already on treatment for pneumonia. 7. History of squamous-cell lung cancer. Follows with Dr. Lee as an outpatient. 8. Depression/anxiety. Continue with current medications. 9. Gastroesophageal reflux disease (GERD). Continue with omeprazole. 10. Deep venous thrombosis (DVT) prophylaxis. On heparin upon hospital course. DISCHARGE MEDICATIONS: The patient is being discharged home on the following medication list: - albuterol two puffs inhaled four times a day as needed for shortness of breath - aspirin 81 mg by mouth daily - carbidopa levodopa two tablets by mouth four times a day - carbidopa levodopa one tablet by mouth at bedtime - vitamin B12 5000 mcg by mouth daily - omeprazole 40 mg by mouth twice a day - oxybutynin 5 mg by mouth twice a day - pyridoxine 200 mg by mouth daily - salmeterol/fluticasone two puffs inhaled twice a day - sertraline 25 mg by mouth at bedtime - thiamine 100 mg by mouth daily - tramadol 50 mg by mouth at bedtime Stopped medications include the following: - levothyroxine 150 mcg by mouth daily - simvastatin 40 mg daily New prescriptions are: - atorvastatin 10 mg by mouth daily - azithromycin 500 mg by mouth daily - Cefdinir 300 mg by mouth twice a day - diltiazem extended release 120 mg by mouth daily - levothyroxine 125 mcg by mouth daily DISCHARGE INSTRUCTIONS: The patient has been advised to followup with laborer general and primary care doctor within the next seven days. He has been advised to remain compliant with treatment plan and medications, and return to the emergency room if he experiences any problems. TIME SPENT ON DISCHARGE: 35 minutes.
== END 2017-01-31 15:14 | disposition home health service (06) | DRG 194 ==
LOC: M ED 11:13 → M ED INP 16:25 → M MS5PR 19:35 → M PCU 01-28 19:00
PROVIDERS: ADMIT Internal Medicine; ATTEND Internal Medicine
DX: J18.9 Pneumonia, unspecified organism (principal); I47.1 Supraventricular tachycardia; G20 Parkinson's disease; E78.5 Hyperlipidemia, unspecified; E03.9 Hypothyroidism, unspecified; K21.9 Gastro-esophageal reflux disease without esophagitis; R74.0 Nonspecific elevation of levels of transaminase and lactic acid dehydrogenase [LDH]; F41.9 Anxiety disorder, unspecified; F32.9 Major depressive disorder, single episode, unspecified; I44.4 Left anterior fascicular block; Z85.118 Personal history of other malignant neoplasm of bronchus and lung; Z79.82 Long term (current) use of aspirin; Z79.891 Long term (current) use of opiate analgesic; Z79.899 Other long term (current) drug therapy

== ENCOUNTER 2017-07-10 17:47 | Emergency (ER) | payer MEDICARE ==
[~2017-07-10] VITALS: Ht 177.8 cm; Wt 87.3 kg
[~2017-07-10 17:47] MED LIST changes: +ADVA115A INH; +ALBU17IN INH; +ASPI81CH PO; +ASPI81TA24 PO; +ATOR1TAB19 PO; +AZIT500T2 PO; +CARB1TAB9 PO; +CARB1TAB97 PO; +CARB25TA PO; +CARBIDOPA-LEVO PO; +CARD120C3 PO; +CEFD1CAP8 PO; +LEVO150T42 PO; +OXYB5TAB PO; +PYRI100T2 PO; +SERT25TA PO; +SIMV80TA PO; +SYNT125T PO; +TRAM50TA2 PO; +VITA100T2 PO; +VITA500064 PO
[2017-07-10] MEDS ORDERED: ENTA1TAB (17:59)
[2017-07-10] MEDS: SODIUM CHLORIDE 0.9% 1000 ML IV ONE (19:00)
[2017-07-10 19:01] LABS: BASO % 0.2 % (0.0-1.0); EOS # 0.1 10^3/uL (0.0-0.50); EOS % 0.5 % (0.0-3.0); IMMATURE GRANULOCYTE % 0.4 % (0-0); LYMPH # 1.4 10^3/uL (1.5-4.5); LYMPH % 10.5 % (24.0-44.0); MEAN CORPUSCULAR HEMOGLOBIN 29.3 pg (27.0-33.0); MEAN CORPUSCULAR HGB CONC 32.6 g/dl (32.0-36.5); MEAN CORPUSCULAR VOLUME 89.9 fl (80.0-96.0); MONO % 7.8 % (0.0-5.0); NEUTROPHILS # 10.6 10^3/uL (1.8-7.7); NEUTROPHILS % 80.6 % (36.0-66.0); PLATELET COUNT, AUTOMATED 216 10^3/uL (150-450); RED CELL DISTRIBUTION WIDTH 13.8 % (11.5-14.5); WHITE BLOOD COUNT 13.2 10^3/uL (4.0-10.0)
[2017-07-10 19:15] LABS: ANION GAP 2 MEQ/L (8-16); BLOOD UREA NITROGEN 26 MG/DL (7-18); CALCIUM LEVEL 8.8 MG/DL (8.8-10.2); CARBON DIOXIDE LEVEL 32 MEQ/L (21-32); CHLORIDE LEVEL 104 MEQ/L (98-107); CREATININE FOR GFR 0.99 MG/DL (0.70-1.30); GLOMERULAR FILTRATION RATE > 60.0 (>42); GLUCOSE, FASTING 97 MG/DL (83-110); POTASSIUM SERUM 4.2 MEQ/L (3.5-5.1); SODIUM LEVEL 138 MEQ/L (136-145)
[2017-07-10 19:27] LABS: MAGNESIUM LEVEL 1.9 MG/DL (1.8-2.4)
--- NOTE | 2017-07-10 19:47 | ECGEPIP ---
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
[2017-07-10] MEDS: CEFTRIAXONE SOD 2 GM in APPROPRIATE DILUENT 1 EA IV ONE (20:42)
[2017-07-10] MEDS ORDERED: CEFD1CAP8 PO (21:03)
[2017-07-10] MEDS ORDERED: AZIT500T2 PO (21:03)
[2017-07-10] MEDS: AZITHROMYCIN INJ 500 MG, VIAL MATE ADAPTER 1 EACH in D5W 250 ML IV ONE (21:27)
[2017-07-10 23:06] VITALS: BP 128/73
--- NOTE | 2017-07-11 07:44 | REP ---
PA and lateral chest: Comparisons 04/16/2013. There is chronic parenchymal scarring in the right paratracheal area and right suprahilar zone. This is unchanged. The lung blake otherwise clear. Cardiac size normal. The ramsey, mediastinum, and bony thorax are unchanged. Impression: There are no acute cardiopulmonary changes. There is chronic parenchymal scarring in the right upper lobe. Signed by Merritt Maya MD 07/11/2017 07:35 A
== END 2017-07-10 23:19 | disposition home or self-care (01) ==
LOC: M ED 17:47
DX: R05 Cough (principal); R53.1 Weakness; R91.8 Other nonspecific abnormal finding of lung field; J44.9 Chronic obstructive pulmonary disease, unspecified; G20 Parkinson's disease; E03.9 Hypothyroidism, unspecified; Z87.891 Personal history of nicotine dependence; Z85.118 Personal history of other malignant neoplasm of bronchus and lung
CPT/HCPCS: 71020; 80048; 83605; 83735; 85025; 86140; 87040; 87070; 87077; 87186; 87205; 87486; 87581; 87633; 87798; 93005; 93041; 94760; 96365; 96368; 99284; J0456

== ENCOUNTER → 2018-04-01 | Outpatient (CLI) | payer MEDICARE | LOC: M WUC 13:48 | DX: S30.0XXA Contusion of lower back and pelvis, initial encounter (principal); M51.36 Other intervertebral disc degeneration, lumbar region; X58.XXXA Exposure to other specified factors, initial encounter; Y92.9 Unspecified place or not applicable | CPT/HCPCS: 72110 ==

== ENCOUNTER 2018-11-02 07:09 | Emergency (ER) | payer MEDICARE ==
[~2018-11-02] VITALS: Ht 177.8 cm; Wt 89.5 kg
[~2018-11-02 07:09] MED LIST changes: -ASPI81CH PO; +ASPI81CH49 PO; -CARB25TA PO; +CARB25TA9 PO; +ENTA1TAB; -SERT25TA PO; +SERT25TA85 PO; -SIMV80TA PO; +SIMV80TA13 PO; -VITA100T2 PO; +VITA100T8 PO
[2018-11-02] MEDS ORDERED: LIDOCAINE 2% 5ML JELLY UROJET TOP ONE (07:30)
--- NOTE | 2018-11-02 08:09 | REP ---
CT of the brain without IV contrast: There are no comparisons. There is no hemorrhage. There is no edema, mass effect or midline shift. The cortical stripe is unremarkable. There is a decreased attenuation in the subcortical white matter compatible with chronic microvascular ischemia. The sulci are enlarged compatible with diffuse volume loss. The visualized paranasal sinuses and mastoid air cells are clear. Impression: There is no hemorrhage, acute infarct or mass. There is diffuse volume loss. There is evidence for chronic microvascular ischemia. Electronically Signed by Merritt Maya MD 11/02/2018 08:01 A
[2018-11-02 08:14] LABS: BASO % 0.1 % (0.0-1.0); HEMATOCRIT 42.9 % (42.0-52.0); LYMPH # 0.9 10^3/uL (1.5-4.5); LYMPH % 5.9 % (24.0-44.0); MEAN CORPUSCULAR HEMOGLOBIN 30.2 pg (27.0-33.0); MEAN CORPUSCULAR HGB CONC 32.6 g/dl (32.0-36.5); MEAN CORPUSCULAR VOLUME 92.5 fl (80.0-96.0); MONO # 1.6 10^3/uL (0.0-0.8); MONO % 10.3 % (0.0-5.0); NEUTROPHILS # 12.9 10^3/uL (1.8-7.7); NEUTROPHILS % 83.1 % (36.0-66.0); PLATELET COUNT, AUTOMATED 191 10^3/uL (150-450); RED BLOOD COUNT 4.64 10^6/uL (4.30-6.10); WHITE BLOOD COUNT 15.6 10^3/uL (4.0-10.0)
--- NOTE | 2018-11-02 08:27 | REP ---
Chest, two AP views, patient sitting: Comparisons are the chest CT dated 04/05/2015 and PA and lateral chest dated 12/01/2017. The patient has history of lung carcinoma. There is chronic right paramediastinal parenchymal scarring, unchanged from both comparison studies, compatible with post radiation/postsurgical change. There is a focal increased density inferiorly in the left lung as an interval change, atelectasis versus acute infiltrate. Lung blake otherwise clear. Cardiac size normal. The right hilus and mediastinum are distorted by the right paramediastinal changes. Left hilus is unremarkable. Skeletal structures are unremarkable. Impression: Possible subsegmental infiltrate inferiorly in the left lung. Chronic postsurgical/postradiation right paramediastinal changes. Electronically Signed by Merritt Maya MD 11/02/2018 08:19 A
--- NOTE | 2018-11-02 08:34 | ECGEPIP ---
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
[2018-11-02 08:42] LABS: AMPHETAMINES LEVEL URINE NEGATIVE (NEGATIVE); BARBITURATES URINE NEGATIVE (NEGATIVE); BENZODIAZEPINES URINE NEGATIVE (NEGATIVE); CANNABINOIDS URINE NEGATIVE (NEGATIVE); COCAINE METABOLITE URINE NEGATIVE (NEGATIVE); METHADONE URINE NEGATIVE (NEGATIVE); OPIATES URINE NEGATIVE (NEGATIVE); PHENCYCLIDINE URINE NEGATIVE (NEGATIVE)
[2018-11-02 08:45] LABS: ACETAMINOPHEN LEVEL < 2.0 UG/ML (10.0-30.0); ALBUMIN 3.7 GM/DL (3.2-5.2); ALT/SGPT 6 U/L (12-78); BILIRUBIN,DIRECT 0.4 MG/DL (0.0-0.2); BILIRUBIN,TOTAL 1.3 MG/DL (0.2-1.0); BLOOD UREA NITROGEN 18 MG/DL (7-18); CARBON DIOXIDE LEVEL 27 MEQ/L (21-32); CHLORIDE LEVEL 102 MEQ/L (98-107); CPK CREATINE PHOSPHOKINASE 56 U/L (39-308); CREATININE FOR GFR 0.85 MG/DL (0.70-1.30); ETHYL ALCOHOL (ETHANOL) < 0.003 % (0.000-0.010); GLOMERULAR FILTRATION RATE > 60.0 (>42); GLUCOSE, FASTING 100 MG/DL (70-100); MB/CK RELATIVE INDEX 2.68 (< OR =4); POTASSIUM SERUM 3.8 MEQ/L (3.5-5.1); SALICYLATE LEVEL < 1.7 MG/DL (5.0-30.0); SODIUM LEVEL 136 MEQ/L (136-145); THYROID STIMULATING HORMONE 0.443 uIU/ML (0.358-3.740); TOTAL PROTEIN 7.5 GM/DL (6.4-8.2); TROPONIN I < 0.02 NG/ML (< 0.10)
[2018-11-02 09:30] VITALS: BP 158/91
[2018-11-02] MEDS ORDERED: MOXIFLOXACIN 400 MG TAB PO ONE (09:30)
[2018-11-02] MEDS ORDERED: MOXI400T11 PO (09:54)
== END 2018-11-02 10:05 | disposition home or self-care (01) ==
LOC: M ED 07:09 → EDBD 07:09 → M ED 10:05
DX: J18.9 Pneumonia, unspecified organism (principal); J44.9 Chronic obstructive pulmonary disease, unspecified; F33.9 Major depressive disorder, recurrent, unspecified; K21.9 Gastro-esophageal reflux disease without esophagitis; G47.30 Sleep apnea, unspecified; G20 Parkinson's disease; E66.9 Obesity, unspecified; Z79.899 Other long term (current) drug therapy; Z79.890 Hormone replacement therapy; Z79.82 Long term (current) use of aspirin; Z87.891 Personal history of nicotine dependence
CPT/HCPCS: 36415; 51701; 70450; 71045; 80048; 80076; 80307; 81001; 82140; 82550; 82553; 83605; 84443; 84484; 85025; 87040; 93005; 93041; 94760; 99285; G0480

== ENCOUNTER → 2018-11-22 | Outpatient (CLI) | payer MEDICARE ==
[~2018-11-22] MED LIST changes: +MOXI400T11 PO
--- NOTE | 2018-11-22 18:31 | REP ---
HISTORY: Followup pneumonia. COMPARISON: Multiple priors were reviewed, the latest of which is dated 11/02/2018, a portable exam and the next latest a two view exam of 12/01/2017. There is a coin lesion seen in the left lower lobe, which measures 2.3 cm completely obscured by portable technique on the latest prior and representing a change from the next latest prior of 12/01/2017, a PA and lateral view of the chest. There is slight elevation of the diaphragmatic surface of each lung. The pleural angles are sharp. The cardiomediastinal silhouette is stable. The heart is not enlarged. The osseous structures are within normal limits for the patient's age and stable. IMPRESSION: Left lower lobe nodule as described above. Contrast enhanced CT examination of the chest is recommended. Electronically Signed by Robert Martinez DO 11/23/2018 04:13 P
== END ==
LOC: M RAD 16:49
PROVIDERS: ATTEND Nurse Practitioner Family
DX: R91.1 Solitary pulmonary nodule (principal)

== ENCOUNTER → 2018-12-27 | Outpatient (CLI) | payer MEDICARE ==
--- NOTE | 2018-12-29 16:58 | REP ---
HISTORY: Pulmonary nodules. There are on prior PET/CT exams for comparison. Previous CT scan of the chest on 12/08/2018 showed multiple left lung nodules, the largest of which measured 2.5 x 2.4 cm and spiculated. After the intravenous administration of 9.82 mCi of FDG-18 triplane whole body PET/CT was performed from the skull base to the mid thigh. There is a focus of abnormal hypermetabolic activity seen in the left lower lobe with SUV values of greater than 10 maximally. More inferior in the left lower lobe in the medial basal segment, there is an additional hypermetabolic lesion and again having SUV values greater than 10 maximally. There are no other abnormal hypermetabolic lung findings. There is no hypermetabolic mediastinal or hilar adenopathy. There is a patchy somewhat consolidated opacity in the right lower lobe. There are no other abnormal hypermetabolic foci seen in the neck, chest, abdomen or pelvis. IMPRESSION: 1. Two hypermetabolic left lung lesions consistent with neoplasm. 2. Somewhat patchy consolidated opacity in the right lung lower lobe and in the right upper lobe region. These areas are nonhypermetabolic and are completely stable from the CT scan of the chest of 12/08/2018 and they are additionally actually improved significantly from the 01/27/[address] The areas likely indicate chronic scarring. Electronically Signed by Robert Martinez DO 12/29/2018 06:05 P
== END ==
LOC: M PLARAD 11:24
PROVIDERS: ATTEND Family Medicine
DX: C34.32 Malignant neoplasm of lower lobe, left bronchus or lung (principal)
CPT/HCPCS: 78815; A9552

== ENCOUNTER → 2019-01-14 | Outpatient (CLI) | payer MEDICARE ==
[~2019-01-14] MED LIST changes: +LASI20TA3 PO; +THIA100TA PO
[2019-01-14 10:58] LABS: INR 1.06; PROTHROMBIN TIME 13.5 SECONDS (11.8-14.0)
[2019-01-14 10:59] LABS: PARTIAL THROMBOPLASTIN TIME 31.2 SECONDS (25.0-38.4)
== END ==
LOC: M LAB 10:24
PROVIDERS: ATTEND Internal Medicine Pulmonary Disease
DX: R91.8 Other nonspecific abnormal finding of lung field (principal)

== ENCOUNTER → 2019-01-18 | Outpatient (CLI) | payer MEDICARE ==
[~2019-01-18] MED LIST changes: +LIDOCAINE 1% MDV 20ML VIAL As Ordered ONE
--- NOTE | 2019-01-18 11:42 | REP ---
Chest x-ray: Single view. History: Post biopsy chest x-ray. The patient is status post needle biopsy left lower lobe lung nodule. Comparison study: November 22, 2018. Findings: The left lower lobe lung nodule is again seen unchanged in size. There is no evidence of pneumothorax or hydrothorax. Impression: No complication is identified. Electronically Signed by Juan Landin MD 01/18/2019 11:33 A
--- NOTE | 2019-01-18 16:39 | REP ---
CT-guided left lower lobe lung biopsy The procedure is performed by CRISTOBAL Maria, under the personal supervision of Dr. Landin. The patient has a history of a focus of abnormal hyper bowel and the activity seen in the left lower lobe on a PET CT dated 12/27/2018. The risks and benefits of the procedure were explained to the patient and informed consent was obtained both orally and written. Directly prior to the start of the procedure, a formal timeout was done in the exam room. The left lower lung lobe was localized using CT guidance. Skin was prepped and draped in the usual sterile fashion. 3 ml of 1% lidocaine was used as a local anesthetic. Using CT guidance a 19/20 gauge coaxial needle biopsy system was inserted and advanced into the nodule. 4 core biopsy samples were obtained and sent to the lab. CT images obtained directly after the biopsy show no evidence of pneumothorax. After the appropriate amount of monitored convalescence the patient was discharged from the department. Reviewed by CRISTOBAL Adan 01/18/2019 12:47 P Electronically Signed by Juan Landin MD 01/18/2019 04:31 P
== END ==
LOC: M RADPRO 09:07
PROVIDERS: ATTEND Internal Medicine Pulmonary Disease
DX: C34.32 Malignant neoplasm of lower lobe, left bronchus or lung (principal)

== ENCOUNTER 2019-01-23 12:21 | Emergency (ER) | payer MEDICARE ==
[~2019-01-23] VITALS: Ht 177.8 cm; Wt 87.3 kg
[~2019-01-23 12:21] MED LIST changes: -LASI20TA3 PO; -LIDOCAINE 1% MDV 20ML VIAL As Ordered ONE
--- NOTE | 2019-01-23 14:12 | REP ---
Clinical: Cough and dyspnea. Technique: PA and lateral. Comparison: 11/22/2018. Findings: Diffuse chronic changes and right-sided pleuroparenchymal changes remain stable. 2.5 cm mass in the left base again identified. Mediastinum and cardiac silhouette within normal limits. No consolidation. No effusion. No pneumothorax. Skeletal structures intact. Impression: Stable chronic changes. Stable left lower lobe mass. Subtle superimposed medial right-sided consolidation/atelectasis cannot be excluded. Electronically Signed by Dustin Stlyes MD 01/23/2019 02:03 P
--- NOTE | 2019-01-23 14:47 | REP ---
REASON: Pain and swelling bilaterally. TECHNIQUE: Multiple ultrasonographic images of the deep venous structures of the thigh were obtained from the common femoral vein to the popliteal vein along with Doppler interrogation and color flow Doppler images. FINDINGS: There is no abnormal echogenic material seen within any of the visualized deep venous structures that would suggest acute thrombosis. Coaptation is unremarkable throughout. Doppler interrogation shows an expected response to respiratory variability and augmentation. The color flow images show what appears to be a normal vascular pattern throughout. IMPRESSION: There is no ultrasonographic evidence of deep venous thrombosis involving any of the visualized deep venous structures of the bilateral thigh, as described above. Electronically Signed by Robert Martinez DO 01/23/2019 03:29 P
[2019-01-23 14:48] LABS: BASO % 0.5 % (0.0-1.0); EOS # 0.2 10^3/uL (0.0-0.50); EOS % 2.6 % (0.0-3.0); HEMATOCRIT 41.5 % (42.0-52.0); HEMOGLOBIN 13.4 g/dl (13.5-17.5); LYMPH # 1.4 10^3/uL (1.5-4.5); LYMPH % 22.8 % (24.0-44.0); MEAN CORPUSCULAR HEMOGLOBIN 29.1 pg (27.0-33.0); MEAN CORPUSCULAR HGB CONC 32.3 g/dl (32.0-36.5); MEAN CORPUSCULAR VOLUME 90.2 fl (80.0-96.0); MONO # 0.5 10^3/uL (0.0-0.8); MONO % 8.3 % (0.0-5.0); NEUTROPHILS % 65.6 % (36.0-66.0); PLATELET COUNT, AUTOMATED 200 10^3/uL (150-450)
[2019-01-23 14:58] LABS: INR 1.11
[2019-01-23 15:00] LABS: D-DIMER QUANT 693.83 ng/ml (<500)
[2019-01-23 15:28] LABS: ALBUMIN 3.4 GM/DL (3.2-5.2); ALT/SGPT 8 U/L (12-78); BILIRUBIN,DIRECT 0.1 MG/DL (0.0-0.2); BILIRUBIN,TOTAL 0.6 MG/DL (0.2-1.0); BLOOD UREA NITROGEN 22 MG/DL (7-18); CALCIUM LEVEL 8.5 MG/DL (8.8-10.2); CARBON DIOXIDE LEVEL 29 MEQ/L (21-32); CHLORIDE LEVEL 104 MEQ/L (98-107); GLOMERULAR FILTRATION RATE > 60.0 (>42); GLUCOSE, FASTING 95 MG/DL (70-100); NT-PRO BNP 601 PG/ML (<450); POTASSIUM SERUM 3.7 MEQ/L (3.5-5.1); SODIUM LEVEL 138 MEQ/L (136-145); THYROID STIMULATING HORMONE 0.195 uIU/ML (0.358-3.740); TOTAL PROTEIN 7.4 GM/DL (6.4-8.2)
[2019-01-23] MEDS ORDERED: LASI20TA3 PO (15:56)
[2019-01-23] MEDS ORDERED: FUROSEMIDE 20 MG/2 ML VIAL (J1940) IV ONE (16:00)
[2019-01-23 16:33] VITALS: BP 167/86
--- NOTE | 2019-01-25 10:46 | ED PDOC ---
Post-Departure Follow-Up dr smart faxed formal report of cxr for fu froylang Bisi Patel MD Jan 25, 2019 10:46
[2019-02-09] MEDS ORDERED: OMEP-221 PO (11:02)
== END 2019-01-23 17:30 | disposition home or self-care (01) ==
LOC: M ED 12:21
DX: R60.0 Localized edema (principal); E03.9 Hypothyroidism, unspecified; E78.5 Hyperlipidemia, unspecified; C34.90 Malignant neoplasm of unspecified part of unspecified bronchus or lung; K21.9 Gastro-esophageal reflux disease without esophagitis; Z79.82 Long term (current) use of aspirin; Z79.899 Other long term (current) drug therapy
CPT/HCPCS: 36415; 71046; 80048; 80076; 83880; 84443; 85025; 85379; 85610; 93041; 93971; 94760; 96374; 99285; J1940

== ENCOUNTER → 2019-02-09 | Outpatient (CLI) | payer MEDICARE ==
[~2019-02-09] MED LIST changes: +LASI20TA3 PO; +OMEP-221 PO
--- NOTE | 2019-02-14 11:49 | RADONC ---
RADIATION ONCOLOGY CONSULTATION NOTE DATE: 02/09/2019 CHART NUMBER: [id number] DIAGNOSIS: Left lower lobe lung carcinoma. STAGE: II B, T3, N0, M0. ECOG PERFORMANCE STATUS: 2. CONSULTATION NOTE: Mr. Price is a very pleasant, 78-year-old white male who is well-known to our department and is now presenting with a new diagnosis of multiple hypermetabolic left lower lobe squamous cell carcinomas for consideration of external beam radiation therapy either with traditional treatment or SBRT. The patient's history is of great significance in this case. The patient's history originally dates back to March 16, 2004 when a chest x-ray was done and showed infiltrate in the right upper lobe with retraction suggesting an obstructive cause. Subsequent CT scan showed a right hilar mass with encasement and narrowing of the right bronchus as well as the right pulmonary artery and branch arteries. This was predominant in the right upper lobe with multiple satellite lesions. On 03/18/2004, the patient underwent transbronchial biopsy and pathology revealed small cell lung carcinoma. He was seen by our medical oncologist, Dr. Toure and chemotherapy was initiated. He subsequently presented to me for possible thoracic consolidative radiation therapy. I treated the patient to his mediastinum and involved lungs for a dose of 6120 cGy delivered in 34 fractions of 180 cGy each from 05/28/2004 through 07/16/2004. The patient did well and subsequently returned to me on August 12, 2004 for discussion of prophylactic cranial irradiation. I treated the patient to his brain for a dose of 3600 cGy delivered in 18 fractions of 200 cGy each from 08/19/2003 through 09/11/2004. The patient has done remarkably well with no evidence of recurrent disease now almost 15 years post completion of systemic therapy and chemotherapy. He had been followed however, and two left lower lobe nodules were seen. On 12/27/2018, these hypermetabolic nodules were both located in the left lower lobe. The SUV values were greater than 10. The largest of the two lesions measured 2.5 x 2.4 cm, but the second lesion was almost as large. He is now presenting for discussion of any possible treatments we can give. PAST MEDICAL HISTORY: The patient's past medical history is positive for Parkinson disease as well as some dementia. He has hyperlipidemia and hypothyroidism as well as GERD. He also has a history of COPD. ALLERGIES: The patient has NO KNOWN DRUG ALLERGIES. SOCIAL HISTORY: The patient no longer smokes cigarettes. He does not abuse alcohol. FAMILY HISTORY: The patient's family history is positive for a sister and brother with lung cancer. REVIEW OF SYSTEMS: The patient's review of systems is positive for physical limitations. He also has difficulty swallowing and some anxiety. He reports weakness in his arms and legs and some shortness of breath. It is otherwise noncontributory. Denies nausea, vomiting, fevers, chills, night sweats, diplopia, headaches, anxiety or depression, anorexia, weight loss, visual disturbances, chest pain, urinary or bowel difficulties, bone pain, or neurological problems. PHYSICAL EXAMINATION: The patient is a well-developed, well-nourished male in no acute distress. HEENT exam is normocephalic, atraumatic. Extraocular movements are intact. There is no palpable cervical, supraclavicular, infraclavicular, axillary, or inguinal lymphadenopathy present. Respiratory examination reveals some rhonchi throughout with coarse breath sounds. Heart has a regular rate and rhythm. Abdomen is benign with no hepatosplenomegaly, masses, or tenderness. Rectal examination reveals a normal anal sphincter tone. His prostate is smooth with no evidence of nodularity. Skeletal examination reveals no tenderness to pressure or percussion of the bony skeleton. Extremities reveal some lower extremity edema. Neurologic exam is grossly intact, as is the remainder of the physical examination. ASSESSMENT: I had a very lengthy discussion with this patient and personally reviewed all of his previous radiation treatment plan. The patient had a rather large bulky disease initially and the radiation blake were quite large. We took great care at using multiple angles as well as a multiple coned-down technique to maintain most of the lung within tolerance limits. We were quite successful and indeed the patient is breathing quite nicely without the need of oxygen. I have superimposed his various treatment blake over the present area which would need radiation. I am quite concerned. He has lost a significant amount of lung and indeed this is the reason for his consolidated opacity in the right lobe. Our oblique blake as well as lateral blake undoubtedly will be overlapping somewhat with any radiation used either SBRT or standard external beam for these two masses. I am quite concerned at the amount of lung volume overall that this patient may lose in order to treat these two lesions. I have gone through each of the treatment plans and angles as well as PET scan with the patient and his family. Prior to any final decisions or recommendations, I am putting him on our list for discussion at our next multidisciplinary tumor conference. Considering the patient's advanced age and the fact that these areas are asymptomatic at this time and causing him no problems, I think we may cause more harm than good in considering radiating them. I have offered to set him up for consultation at [facility] so that they could obtain the expert opinion of the physicians doing SBRT. We do not at this time do SBRT in this institution. I am quite concerned however that the lesions are very close to the heart and spinal column area in that with the limitations of the previous radiation may add to significant risk of treatment. Once again at this time I doubt that this patient would benefit from radiation, but in summary, we are putting him on for discussion at multidisciplinary tumor conference and are more than willing to send him on for a second opinion at a bigger center with experience in SBRT if the family so decides when they return to us following tumor board discussion. cc: MD Kiko Landry MD Jason White, MD
== END ==
LOC: M ONCR 10:00
PROVIDERS: ATTEND Radiology Radiation Oncology
DX: C34.32 Malignant neoplasm of lower lobe, left bronchus or lung (principal)

== ENCOUNTER → 2019-02-23 | Outpatient (CLI) | payer MEDICARE ==
--- NOTE | 2019-02-23 09:38 | RADONC ---
RADIATION ONCOLOGY PROGRESS NOTE DATE: 02/23/2019 CHART #: [id number] DIAGNOSIS: Left lower lobe lung cancer. STAGE: II B, T3N0M0. ECOG PERFORMANCE STATUS: 4. PROGRESS NOTE: Mr. 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 I presented the patient at our multidisciplinary tumor conference. There are two larger hypermetabolic nodules present in the left lower lobe which basically is the only area that has not received radiation therapy in the past. There are also however several other smaller nodules which Dr. Anatoly Landin, our radiologist, thought could be possibly also malignant. They are too small to be hypermetabolic however. In light of the patient's overall condition and previous radiation therapy to the lung, I personally do not think he would be a candidate for external beam radiation therapy. The patient reports that he already has a very limited quality of life and cannot walk secondary to his Parkinson's disease. Indeed, he has lived now 15 years with an initially large and bulky small cell lung carcinoma. After careful discussion, the patient does not wish to undergo anything at this point. In summary, I have offered to set the patient up with a consultation in [place] if he wants to consider SBRT radiosurgery. I am more than happy to do so. We do not do SBRT treatments in this facility. I would defer of course to the expertise of the radiation oncologist who do SBRT routinely on the qualifications of this patient for such treatment. In light of the very limited performance status of this gentleman and his wishes as well as his advanced age, I think it reasonable to simply provide him with palliative care. The patient is however scheduled to see Dr. Ventura, his medical oncologist, in 2 weeks to discuss other options as well. Once again, I am more than happy to set him up for an appointment in [place] for SBRT if he wishes a second opinion. cc: MD Kiko Landry MD Jason White, MD
== END ==
LOC: M ONCR 08:55
PROVIDERS: ATTEND Radiology Radiation Oncology
DX: C34.90 Malignant neoplasm of unspecified part of unspecified bronchus or lung (principal)

== ENCOUNTER 2019-04-12 23:42 | Emergency (ER) | payer MEDICARE ==
[~2019-04-12] VITALS: Ht 177.8 cm; Wt 88.2 kg
[~2019-04-12 23:42] MED LIST changes: -OXYB5TAB PO; +OXYB5TAB2 PO
--- NOTE | 2019-04-13 00:45 | REPVR ---
PROCEDURE INFORMATION: Exam: CT Head Without Contrast Exam date and time: 04/12/2019 11:57 PM Clinical history: 78 years old, male; Injury or trauma; Fall; Initial encounter; Concussion / head injury TECHNIQUE: Imaging protocol: Computed tomography of the head without contrast. Radiation optimization: All CT scans at this facility use at least one of these dose optimization techniques: automated exposure control; mA and/or kV adjustment per patient size (includes targeted exams where dose is matched to clinical indication); or iterative reconstruction. COMPARISON: CT Head without contrast 11/02/2018 7:21 AM FINDINGS: Brain: No intracranial mass, focal mass effect or midline shift. No acute intracranial hemorrhage. Mild decreased attenuation in periventricular/centrum semiovale white matter. No focal effacement of cortical sulci to indicate acute cortical infarct. Ventricles: Prominent ventricles and CSF spaces suggest parenchymal volume loss. Bones/joints: No calvarial fracture or destructive process. Sinuses: Visualized paranasal sinuses are unremarkable. Mastoid air cells: Mastoid air cells are normally aerated. Orbits: Visualized globes and orbits are unremarkable. Soft tissues: Right posterior vertex scalp swelling . IMPRESSION: 1. Right posterior vertex extracranial scalp swelling 2. No acute intracranial abnormality. 3. Atrophy and chronic microangiopathic change in supratentorial white matter. Electronically signed by: Merlin Lawrence On 04/13/2019 00:45:04 AM
[2019-04-13] MEDS ORDERED: TETANUS/DIPHTHERIA TOX ADSORB ADULT 0.5ML SYR/VIAL (90714) IM ONE (01:15)
[2019-04-13 01:46] VITALS: BP 148/78
--- NOTE | 2019-04-13 21:35 | ECGEPIP ---
[facility] - ED Test Date: 2019-04-13 Pat Name: AMALIA JOHNSON Department: Room: - Gender: Male Manager Credit Risk: : [id number] Requested By: STUART BALDERAS Order Number: [id number] Reading MD: Terri Pro Measurements Intervals [place] Rate: 88 P: 40 RI: 176 QRS: -57 QRSD: 110 T: 42 QT: 399 QTc: 485 Interpretive Statements SINUS RHYTHM WITH FREQUENT VENTRICULAR PREMATURE COMPLEXES LEFT ANTERIOR FASCICULAR BLOCK PROLONGED QTC DECREASED RATE/INCREASED ECTOPY/QTC 11/02/18 Electronically Signed on 04-13-2019 21:35:25 EDT by Terri Pro
== END 2019-04-13 01:47 | disposition home or self-care (01) ==
LOC: M ED 23:42
DX: S01.01XA Laceration without foreign body of scalp, initial encounter (principal); W01.198A Fall on same level from slipping, tripping and stumbling with subsequent striking against other object, initial encounter; Y92.098 Other place in other non-institutional residence as the place of occurrence of the external cause; G20 Parkinson's disease; K21.9 Gastro-esophageal reflux disease without esophagitis; Z79.899 Other long term (current) drug therapy; Z79.82 Long term (current) use of aspirin

== ENCOUNTER → 2019-07-10 | Outpatient (REF) | payer MEDICARE ==
[~2019-07-10] MED LIST changes: -AZIT500T2 PO; +AZIT500T5 PO; +OMEP40CA97 PO; -OXYB5TAB2 PO; +OXYB5TAB3 PO; -PYRI100T2 PO; +VITA100T82 PO
== END ==
LOC: M LAB REF 18:15
PROVIDERS: ATTEND Family Medicine
DX: R97.0 Elevated carcinoembryonic antigen [CEA] (principal)

== ENCOUNTER → 2020-01-10 | Outpatient (REF) | payer MEDICARE ==
[~2020-01-10] MED LIST changes: +OXYB-54 PO; -OXYB5TAB3 PO
== END ==
LOC: M LAB REF 17:10
PROVIDERS: ATTEND Family Medicine
DX: R97.0 Elevated carcinoembryonic antigen [CEA] (principal)

== ENCOUNTER → 2020-05-22 | Outpatient (REF) | payer MEDICARE | LOC: M LAB REF 14:07 | PROVIDERS: ATTEND Family Medicine | DX: R97.0 Elevated carcinoembryonic antigen [CEA] (principal) ==